=== PATIENT | male | born 1995 | race Caucasian/White ===

== ENCOUNTER 2020-02-01 20:36 | Emergency (ER) | payer MEDICAID ==
[~2020-02-01] VITALS: Ht 193 cm; Wt 106.8 kg
[~2020-02-01 20:36] MED LIST: LIDOcaine 1% W/epiNEPHrine 1:100,000 20ml vial ONE
[2020-02-01 20:38] VITALS: BP 142/51
[2020-02-01] MEDS ORDERED: SULF1TAB49 PO (21:38)
== END 2020-02-01 21:56 | disposition home or self-care (01) ==
LOC: ER 20:37
DX: S51.812A Laceration without foreign body of left forearm, initial encounter (principal); S51.832A Puncture wound without foreign body of left forearm, initial encounter; Z60.2 Problems related to living alone; Z91.040 Latex allergy status; Z79.899 Other long term (current) drug therapy; W54.0XXA Bitten by dog, initial encounter; Y93.89 Activity, other specified; Y92.89 Other specified places as the place of occurrence of the external cause; Y99.8 Other external cause status
CPT/HCPCS: 12001; 99283